=== PATIENT | female | born 1955 | race Caucasian/White ===

== ENCOUNTER 2019-06-06 08:18 | Outpatient (CLI) | payer MEDICARE, SELFPAY ==
--- NOTE | ~2019-06-06 | DEXA_ITS ---
BMD(1) Young-Adult(2) Age-Matched(3) Region (g/cm2) T-score Z-score WHO Classification L1 1.039 -0.8 1.3 Normal L2 0.945 -2.2 0.0 Osteopenia L3 0.917 -2.4 -0.2 Osteopenia L4 0.994 -1.7 0.4 Osteopenia L1-L4 0.971 -1.8 0.4 Osteopenia Trend: L1-L4 Change vs Change vs Measured Age BMD(1) Baseline Previous Date (years) (g/cm2) (%) (%) 06/06/2019 [age] 0.971 baseline - 1 - Statistically 68% of repeat scans fall within 1SD (+- 0.010 g/cm2 for AP Spine L1-L4) 2 - [place] (Combined NHANES (ages 20-30) / [employer] ([employer]) (ages 20-40)) AP Spine Reference Population (v112) 3 - Matched for Age, Weight (females 25-100 kg), Ethnic 11 - World Health Organization - Definition of Osteoporosis and Osteopenia for Women: Normal = T-score at or above -1.0 SD; Osteopenia = T-score between -1.0 and -2.5 SD; Osteoporosis = T-score at or below -2.5 SD; (WHO definitions only apply when a young healthy Women reference database is used to determine T-scores.) Printed: 06/06/2019 8:48:20 AM (13.60)76:3.00:50.00:12.0 0.00:9.78 0.60x1.05 17.8:%Fat=26.2% 0.00:0.00 0.00:0.00 Filename: [id number] Scan Mode: Standard;OneScan 37.0 Spling [id number] BMD(1) Young-Adult(2,7) Age-Matched(3) Region (g/cm2) T-score Z-score WHO Classification Neck Left 0.690 -2.5 -0.7 Osteoporosis Right 0.701 -2.4 -0.6 Osteopenia Mean 0.696 -2.5 -0.6 Osteoporosis Difference 0.011 0.1 0.1 - Total Left 0.760 -2.0 -0.4 Osteopenia Right 0.777 -1.8 -0.2 Osteopenia Mean 0.769 -1.9 -0.3 Osteopenia Difference 0.017 0.1 0.1 - Hip [place] Length Comparison (mm) (Right = 98.6 mm) (Mean = 100.5 mm) (Left = 96.7 mm) Trend: Total Mean Change vs Change vs Measured Age BMD(1) Baseline Previous Date (years) (g/cm2) (%) (%) 06/06/2019 63.5 0.769 baseline - 1 - Statistically 68% of repeat scans fall within 1SD (+- 0.010 g/cm2 for DualFemur Total) 2 - [place] (Combined NHANES (ages 20-30) / [employer] ([employer]) (ages 20-40)) Femur Reference Population (v112) 3 - Matched for Age, Weight (females 25-100 kg), Ethnic 7 - DualFemur Total T-score difference is 0.1. Asymmetry is None. 11 - World Health Organization - Definition of Osteoporosis and Osteopenia for Women: Normal = T-score at or above -1.0 SD; Osteopenia = T-score between -1.0 and -2.5 SD; Osteoporosis = T-score at or below -2.5 SD; (WHO definitions only apply when a young healthy Women reference database is used to determine T-scores.) Printed: 06/06/2019 8:48:20 AM (13.60); Filename: [id number]; Right Femur; 14.8:%Fat=15.5%; Neck Angle (deg)= 67; Scan Mode: Thin 9.0 uGy; Left Femur; 13.6:%Fat=17.7%; Neck Angle (deg)= 66; Scan Mode: Thin 9.0 uGy Victor [id number] Dear Cassius Greer, Your patient Lela Rivers completed a BMD test on 06/06/2019 using the Victor DXA System (analysis version: 13.60) manufactured by [employer]. The following summarizes the results of our evaluation. PATIENT BIOGRAPHICAL: Name: Lela Rivers Date: 1955 Height: 60.0 in. Gender: Female
== END 2019-06-06 08:19 | disposition home or self-care (01) ==
LOC: CHSIMG 08:20
PROVIDERS: PCP Family Medicine; Visit Provider Family Medicine
DX: M81.0 Age-related osteoporosis without current pathological fracture (principal)
CPT/HCPCS: 77080

== ENCOUNTER 2019-06-16 08:38 | Emergency (ER) | payer MEDICARE, SELFPAY ==
--- NOTE | ~2019-06-16 | XR_ITS ---
EXAMINATION: XR shoulder RT min 2V DATE: 06/16/2019 09:35 INDICATION: Right shoulder pain. Fall. TECHNIQUE: 4 views of right shoulder were obtained. COMPARISON: None. FINDINGS: Bone alignment is normal. No fracture. There is mild osteoarthritis of glenohumeral joint a nd acromioclavicular joint. IMPRESSION: 1. Mild polyarticular osteoarthritis. Reviewed, dictated and finalized at location A. GER MALL
[2019-06-16 09:08] VITALS: BP 157/78; PULSE 66; RESP 20; TEMP 36.9; O2SAT 97
--- NOTE | 2019-06-16 09:10 | ED.UPPEXIN ---
HPI - Extremity Injury (Upper) General Chief Complaint: Extremity Injury, Upper Stated Complaint: fell hurt shoulder Source: patient and RN notes reviewed Mode of arrival: ambulatory Limitations: no limitations History of Present Illness HPI narrative: Patient was stepping up on a step and caught her heel. She tried to extend her arms to prevent her fall but then fell onto her right shoulder. She says she is having pain with range of motion. complaint: injury to: right and shoulder Onset (ago): hour(s) (2) Other injuries: none Handedness: right Place: home Severity scale (1-10): 7 Relieving factors: none Exacerbating factors: movement of extremity Context: fall Associated symptoms: heard/felt popping sensation Related Data Home Medications Medication Instructions Recorded Confirmed clopidogrel 75 mg PO DAILY 06/16/19 06/16/19 hydrocodone-acetaminophen 1 tablet PO PRN PRN 06/16/19 06/16/19 tramadol 50 mg PO BID 06/16/19 06/16/19 Allergies Allergy/AdvReac Type Severity Reaction Status Date / Time bupropion [From Wellbutrin] Allergy Unknown Verified 06/16/19 09:18 hydromorphone [From Dilaudid] Allergy Unknown Verified 06/16/19 09:18 Sulfa (Sulfonamide Allergy Unknown Verified 06/16/19 09:18 Antibiotics) Review of Systems Review of Systems: All systems reviewed & are unremarkable except as noted in HPI and below PMFSH Past Medical History Medical History (Updated 06/16/19 @ 09:49 by Sriram King MD) Endometriosis Fibromyalgia Osteoporosis Ovarian cyst TIA (transient ischemic attack) Surgical History Surgical History (Updated 06/16/19 @ 09:16 by Sriram King MD) H/O arthroscopic knee surgery H/O section H/O exploratory laparotomy H/O hysterectomy for benign disease History of appendectomy Social History Social History (Updated 06/16/19 @ 09:19 by Arely Rainey RN) Smoking status: Current every day smoker Exam Const: General: healthy appearing, no acute distress and alert Nutritional Appearance: well nourished and thin Orientation/consciousness: patient oriented x3 HENMT: Head: normal to inspection Ears: external ears normal General nose exam: Normal external nose present Face and sinus: normal facial exam Eyes: Conjunctivae: conjunctivae normal Pupils: Equal, round and reactive pupils present EOM: EOMs intact bilaterally Neck: Neck: normal visual inspection Resp: Effort & Inspection: normal respiratory effort Auscultation: clear to auscultation bilaterally Cardio: Rate: regular rate Rhythm: regular rhythm GI: GI Palp: Yes Soft to palpation and No Tenderness to palpation present (GI) Auscultation: normal bowel sounds Back/Spine/Pelvis: Cervical Spine: cervical ROM normal Thoracic/Lumbar Spine: thoraco-lumbar ROM normal Skin: General skin exam: normal color Neuro: General: patient oriented x3 Speech: normal speech Gait exam (Neuro): Normal gait present Extrem: Right upper extremity: shoulder/upper arm tenderness of the A-C joint and of the proximal humerus; not of the mid-shaft humerus and normal ROM Psych: Appearance: grossly normal and well kempt Mental Status: mental status grossly normal Affect: normal affect Attitude: cooperative Thought content: Yes Normal thought content present Course Vital Signs Vital signs: Vital Signs Temperature 36.9 C 06/16/19 09:08 Pulse Rate 66 06/16/19 09:08 Respiratory Rate 20 06/16/19 09:08 Blood Pressure 157/78 H 06/16/19 09:08 Pulse Oximetry 97 06/16/19 09:08 Temperature 36.9 C 06/16/19 09:08 Pulse Rate 85 06/16/19 10:01 Respiratory Rate 20 06/16/19 10:01 Blood Pressure 130/75 06/16/19 10:01 Pulse Oximetry 99 06/16/19 10:01 Discharge Plan Discharge Clinical Impression: Strain of right shoulder Qualifiers: Encounter type: initial encounter Qualified Code(s): S46.911A - Strain of unspecified muscle, fascia and tendon at shoulder and upper arm level, rig
[2019-06-16 10:01] VITALS: BP 130/75; PULSE 85; RESP 20; O2SAT 99
== END 2019-06-16 10:02 | disposition home or self-care (01) ==
PROVIDERS: Emergency Provider Emergency Medicine; PCP Family Medicine
DX: S46.911A Strain of unspecified muscle, fascia and tendon at shoulder and upper arm level, right arm, initial encounter (principal); W19.XXXA Unspecified fall, initial encounter
CPT/HCPCS: 73030; 99282; 99283; A4565

== ENCOUNTER 2020-02-01 14:09 | Outpatient (CLI) | payer MEDICARE, SELFPAY ==
[2020-02-01 23:56] LABS: SARS-CoV-2 RNA PCR Negative
== END 2020-02-01 14:10 | disposition home or self-care (01) ==
LOC: CHSLAB 14:14
PROVIDERS: PCP Family Medicine; Visit Provider Nurse Practitioner
DX: Z20.828 Contact with and (suspected) exposure to other viral communicable diseases (principal)
CPT/HCPCS: 87635; C9803; U0003

== ENCOUNTER 2020-04-25 08:49 | Outpatient (CLI) | payer MEDICARE, SELFPAY ==
--- NOTE | ~2020-04-25 | MR_ITS ---
EXAMINATION: MR shoulder RT wo con DATE: 04/25/2020 11:36 INDICATION: Right shoulder pain 6 months post fall TECHNIQUE: Magnetic resonance imaging (MRI) of the right shoulder was performed without intravenous c ontrast. Sequences included axial PD-weighted FS FSE, coronal oblique PD-weighted FS FSE, coronal obl ique T2-weighted FS FSE, sagittal PD-weighted FS FSE, and sagittal T1-weighted SE. COMPARISON: None. FINDINGS: Coracoacromial arch: The acromion undersurface is curved in morphology (type II). The coracoacromial ligament is normal. A cromioclavicular joint is normal. Rotator cuff: Mild supraspinatus tendinopathy with very small articular sided tear approximately 5 mm in the superi or facet footplate which measures only a couple millimeter in each dimension, involving less than one third of the tendon thickness. The infraspinatus and teres minor tendons are normal. Moderate subsca pularis tendinopathy without discrete tear. Normal rotator cuff muscle bulk and signal. Biceps tendon, glenoid labrum and glenohumeral cartilage: Long head of the biceps tendon is normal. Glenoid labrum is normal. Glenohumeral cartilage is normal. Fluid: Physiologic amount of fluid in the glenohumeral joint and biceps tendon sheath. No loose osteochondra l bodies. No abnormal fluid signal in the subacromial/subdeltoid bursa to suggest bursitis. Bones: Marrow edema and mild cystic change along what appears be a small and shallow Hill-Sachs fracture tro ugh at the posterolateral aspect of the humeral head. Otherwise normal marrow signal. No pathologic m arrow replacing process. IMPRESSION: 1. Mild edema cystic change at a small shallow likely chronic Hill-Sachs fracture trough at the poste rior superior aspect of the humeral head suggesting prior anterior glenohumeral dislocation. Correlat e with clinical history. No corresponding Bankart lesion. 2. Moderate subscapularis and mild supraspinatus tendinopathy with tiny mild articular sided tear at the distal supraspinatus tendon. Reviewed, dictated and finalized at location A. LER MANAGER IMPRESSION: 1. Mild edema cystic change at a small shallow likely chronic Hill-Sachs fractu re trough at the posterior superior aspect of the humeral head suggesting prior anterior glenohumeral dislocation. Correlate with clinical history. No corresp onding Bankart lesion. 2. Moderate subscapularis and mild supraspinatus tendinopathy with tiny mild ar ticular sided tear at the distal supraspinatus tendon.
== END 2020-04-25 08:50 | disposition home or self-care (01) ==
PROVIDERS: PCP Family Medicine; Visit Provider Nurse Practitioner
DX: M25.511 Pain in right shoulder (principal)
CPT/HCPCS: 73221

== ENCOUNTER 2020-05-14 08:03 | Outpatient (CLI) | payer MEDICARE, SELFPAY ==
--- NOTE | ~2020-05-14 | XR_ITS ---
XR shoulder RT min 2V DATE: 05/14/2020 08:29 INDICATION: Right shoulder and neck pain. Numbness of right fingers. TECHNIQUE: 5 views COMPARISON: None FINDINGS: No fracture or dislocation, periosteal reaction or bone destruction. Normal alignment at th e acromioclavicular and glenohumeral joints. IMPRESSION: No significant abnormality of the right shoulder Reviewed, dictated and finalized at location A. NTATION AND MOBILITY SPECIALIST
== END 2020-05-14 08:04 | disposition home or self-care (01) ==
LOC: CHSIMG 08:05
PROVIDERS: PCP Family Medicine; Visit Provider Orthopaedic Surgery
DX: M25.511 Pain in right shoulder (principal)
CPT/HCPCS: 73030

== ENCOUNTER 2020-07-09 08:49 | Outpatient (RCR) | payer MEDICARE, SELFPAY ==
--- NOTE | 2020-07-09 11:44 | PTOPEVAL ---
Thank you for referring Lela Rivers to [facility].? The patient is scheduled to be seen for therapy? ____x/week for ___ weeks. Please review, sign, date and return this plan of care CHRISTIANO. I agree with and certify that the following plan of care is medically necessary. Referring Physician Date Admitting Provider: Attending Provider: Bala Daniel MD Referring Provider: *PT Outpatient Evaluation Start: 07/09/20 08:40 Freq: Status: Active Protocol: Document 07/09/20 09:00 ACR (Rec: 07/09/20 10:55 ACR [id number]) Therapy Assessment Status Assessment Status Assessment Status Evaluation Outpatient Past Medical History Neurological History Hx Transient Ischemic Attacks (TIA) Yes Gastrointestinal History Hx Appendectomy Yes Musculoskeletal History Hx Back Pain Yes Hx Fibromyalgia Yes Hx Osteoporosis Yes Reproductive History Hx Section Yes Hx Endometriosis Yes Hx Hysterectomy Yes Evaluation Information Problem Diagnosis R shoulder pain Subjective Information Patient states she tripped and Query Text:As Reported By Patient/ fell a year ago and fractured Family it, but did not get an X-ray or MRI at the time, but did a few months ago. The MRI states she has a Hill Sachs lesion with an AP dislocation. Patient states that her shoulder is keeping her awake, she cannot prop herself up on the R arm, she cannot lift anything with her R arm or open jars. 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 She states she occasionally has pain down her arm, but it is usually in the trapezius muscle. Patient states she occasionally takes hydrocondone if the pain is that bad, but only on an as needed basis. Prior Level of Function Activity Level (Last 3 Months) Occupation disabled Hand Dominance Left Activity of Daily Living Ability Independent Indoor/Home Mobility Independent Community Mobility Independent
--- NOTE | 2020-07-09 11:45 | PTOPEVAL ---
Thank you for referring Lela Rivers to [facility].? The patient is scheduled to be seen for therapy? ____x/week for ___ weeks. Please review, sign, date and return this plan of care CHRISTIANO. I agree with and certify that the following plan of care is medically necessary. Referring Physician Date Admitting Provider: Attending Provider: Bala Daniel MD Referring Provider: *PT Outpatient Evaluation Start: 07/09/20 08:40 Freq: Status: Active Protocol: Document 07/09/20 09:00 ACR (Rec: 07/09/20 10:55 ACR [id number]) Therapy Assessment Status Assessment Status Assessment Status Evaluation Outpatient Past Medical History Neurological History Hx Transient Ischemic Attacks (TIA) Yes Gastrointestinal History Hx Appendectomy Yes Musculoskeletal History Hx Back Pain Yes Hx Fibromyalgia Yes Hx Osteoporosis Yes Reproductive History Hx Section Yes Hx Endometriosis Yes Hx Hysterectomy Yes Evaluation Information Problem Diagnosis R shoulder pain Subjective Information Patient states she tripped and Query Text:As Reported By Patient/ fell a year ago and fractured Family it, but did not get an X-ray or MRI at the time, but did a few months ago. The MRI states she has a Hill Sachs lesion with an AP dislocation. Patient states that her shoulder is keeping her awake, she cannot prop herself up on the R arm, she cannot lift anything with her R arm or open jars. 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 She states she occasionally has pain down her arm, but it is usually in the trapezius muscle. Patient states she occasionally takes hydrocondone if the pain is that bad, but only on an as needed basis. Prior Level of Function Activity Level (Last 3 Months) Occupation disabled Hand Dominance Left Activity of Daily Living Ability Independent Indoor/Home Mobility Independent Community Mobility Independent
--- NOTE | 2020-09-20 16:41 | PCPTNOTE ---
Patient is a 64 year old female that participated in 3 visits for R shoulder pain. The patient had a recent stroke and is being seen for the new diagnosis. This chart is to be discharged at this time. Please refer to recent treatment note for discharge status. Thank you, Mariluz Ybarra DPT
== END 2020-07-17 09:15 | disposition home or self-care (01) ==
LOC: CHSPT 08:49
PROVIDERS: Visit Provider Orthopaedic Surgery
DX: M25.511 Pain in right shoulder (principal); M77.8 Other enthesopathies, not elsewhere classified
CPT/HCPCS: 97014; 97110; 97161; G0283

== ENCOUNTER 2020-08-06 06:56 | Emergency (ER) | payer MEDICARE, SELFPAY ==
--- NOTE | ~2020-08-06 | XR_ITS ---
EXAMINATION: XR chest 1V portable DATE: 08/06/2020 07:46 INDICATION: Cerebrovascular accident. TECHNIQUE: A single frontal view of the chest was obtained. COMPARISON: None. FINDINGS: The chest demonstrates clear lungs without pneumonia, pleural effusion, or pneumothorax. Th e heart size is normal. IMPRESSION: 1. No acute cardiopulmonary disease. Reviewed, dictated and finalized at location A.
--- NOTE | ~2020-08-06 | CT_ITS ---
EXAMINATION: CT brain wo con DATE: 08/06/2020 07:08 INDICATION: Left hemiparesis. TECHNIQUE: Computed tomography (CT) of the head was performed without intravenous contrast. The mA wa s adjusted according to patient size. Iterative reconstruction technique was employed. The dose-lengt h product was 605.33 mGy-cm. COMPARISON: None FINDINGS: There are old infarcts in right cerebellum. There are scattered areas of low attenuation in the cerebral white matter and yumiko. There are old infarcts in the bilateral basal ganglia and left t halamus. There is an infarct in the right thalamus and right internal capsule. There is no intracrani al hemorrhage, acute infarction, or abnormal intracranial mass lesion. There is ex vacuo dilatation o f frontal horn of right lateral ventricle. The paranasal sinuses are clear. The mastoid air cells are normal. The orbits are normal. IMPRESSION: 1. Infarct in the right thalamus and right internal capsule, which may be acute. 2. Old infarcts in the bilateral basal ganglia, left thalamus, and right cerebellum. 3. Moderate nonspecific cerebral white matter disease, which likely represents chronic small vessel i schemic disease. 4. I discussed this case with Dr. Luciano. Reviewed, dictated and finalized at location A. IMPRESSION: 1. Infarct in the right thalamus and right internal capsule, which may be acute . 2. Old infarcts in the bilateral basal ganglia, left thalamus, and right cerebe llum. 3. Moderate nonspecific cerebral white matter disease, which likely represents chronic small vessel ischemic disease. 4. I discussed this case with Dr. Luciano.
[2020-08-06 07:07] VITALS: BP 150/94; PULSE 69; RESP 69; TEMP 36.6; O2SAT 97
[2020-08-06 07:08] LABS: Glucose Point of Care 96 (65-105)
--- NOTE | 2020-08-06 07:08 | ECG_ITS ---
Measurements Intervals [place] Rate: 66 P: 72 MD: 195 QRS: 118 QRSD: 133 T: 87 QT: 408 QTc: 429 Interpretive Statements SINUS RHYTHM RIGHT BUNDLE BRANCH BLOCK LEFT POSTERIOR FASCICULAR BLOCK MINIMAL Q WAVES- INF/LAT LEADS ABNORMAL ECG Electronically Signed On 08-06-2020 8:16:59 CDT by Sebastien Antunez D.O.
[2020-08-06 07:10] VITALS: BP 150/94; PULSE 69; RESP 16; O2SAT 97
[2020-08-06 07:29] LABS: Basophils Absolute Auto 0.05 K/mm3 (0.00-0.10); Basophils Percent Auto 0.7 % (0.0-1.0); Eosinophils Absolute Auto 0.24 K/mm3 (0.02-0.50); Eosinophils Percent Auto 3.5 % (1.0-6.0); Hematocrit 42.6 % (35.0-42.0); Immature Granulocyte Absolute 0.02 K/mm3 (0.00-0.00); Immature Granulocyte Percent A 0.3 % (0.0-0.0); Lymphocytes Absolute Auto 1.89 K/mm3 (1.10-4.50); Lymphocytes Percent Auto 27.2 % (18.0-42.0); Mean Corpuscular HGB Conc 32.9 g/dL (32.0-36.0); Mean Corpuscular Hemoglobin 28.7 pg (27.0-31.0); Mean Corpuscular Volume 87.3 fL (78.0-102.0); Mean Platelet Volume 9.2 fl (9.2-11.8); Monocytes Absolute Auto 0.47 K/mm3 (0.10-0.90); Monocytes Percent Auto 6.8 % (2.0-11.0); Neutrophils Absolute Auto 4.3 K/mm3 (1.7-7.2); Neutrophils Percent Auto 61.5 % (50.0-70.0); Platelet Count Result 240 K/mm3 (150-420); Red Blood Count 4.88 M/mm3 (4.20-5.40); White Blood Count 6.9 K/mm3 (4.8-10.8)
[2020-08-06 07:38] LABS: Appearance Urine Clear (Clear); Bilirubin Urine Negative (Negative); Color Urine Yellow (Yellow); Glucose Urine UA Negative (Negative); Ketones Urine Negative (Negative); Leukocyte Esterase Ur Negative (Negative); Nitrate Urine Negative (Negative); Protein Urine Negative (Negative); Specific Grav Ur <= 1.005 (1.010-1.020); Urobilinogen Urine 0.2 mg/dL (0.2-1.0)
[2020-08-06 07:50] LABS: Alanine Aminotransferase 26 U/L (14-59); Albumin Level 3.9 g/dL (3.4-5.0); Alkaline Phosphatase 83 U/L (46-116); Anion Gap 10 mmol/L (8-16); Aspartate Amino Transferase < 10 U/L (15-37); Bilirubin,Total 0.2 mg/dL (0.00-1.00); Blood Urea Nitrogen 8 mg/dL (7-18); Calcium 9.2 mg/dL (8.5-10.1); Carbon Dioxide 25 mmol/L (21-32); Chloride 104 mmol/L (98-108); Estimated Glomerular Filt Rate 55; Glucose 100 mg/dL (70-99); NT Pro B Type Natriuretic Pept 59 pg/mL (0-125); Osmolality Calculated 286 mOsm/kg (285-295); Potassium 3.9 mmol/L (3.5-5.1); Sodium 139 mmol/L (136-145); Total Protein 7.2 g/dL (6.4-8.2)
[2020-08-06 07:51] LABS: Add Urine Microscopic? YES; Blood Urine Trace-Intact (Negative); RBC Urine None seen /hpf (0-2); Troponin I < 4.0 ng/L (0.00-60.4); WBC Urine None seen /hpf (0-3)
[2020-08-06 07:51] LABS: Magnesium 2.1 mg/dL (1.8-2.4)
[2020-08-06 07:52] LABS: Bacteria Urine None seen /hpf
--- NOTE | 2020-08-06 08:07 | ED.NEUROSD ---
HPI - Neuro Symptoms/Deficit General Chief Complaint: Suspected CVA Stated Complaint: ambulance Source: patient Mode of arrival: EMS Limitations: no limitations (anxiety is an issue) History of Present Illness HPI Narrative: This young woman comes in after going to bed last night between 8 and 10:00 p.m. She woke up at about 3:00 a.m. not feeling well. She felt that she was weak on the left side. She took a full strength aspirin at that time and evidently went back to bed. She took another aspirin full strength at 4am, and then again at 6am. She called 911 and presented here at roughly 7:10am. She tells me she had a stroke in the past and was evaluated, she thinks at [facility] in [place]. She was told she had a septal defect noted at that time, and Dr. Subramanian wanted to do a KATELIN to better evaluate the septal defect, but she never followed up. She has smoked since age 34 when she went through a divorce. Now down to about 5 cigs a day. She was supposed to be on atorvastatin, but stopped it as it caused some muscle cramps. Related Data Home Medications Medication Instructions Recorded Confirmed clopidogrel 75 mg PO DAILY 08/06/20 08/06/20 lisinopril 10 mg PO DAILY 08/06/20 08/06/20 tramadol 50 mg PO BID PRN 08/06/20 08/06/20 Allergies Allergy/AdvReac Type Severity Reaction Status Date / Time bupropion [From Wellbutrin] Allergy Hives Verified 08/06/20 07:52 hydromorphone [From Dilaudid] Allergy Anaphylaxis Verified 08/06/20 07:52 Review of Systems Constitutional: Constitutional: Reports fatigue and Reports weakness Comments: headache Eyes: Eyes: Reports no additional eye complaints ENT: Reports as per HPI Cardiovascular: Cardiovascular: Reports no additional cardiovascular complaints Respiratory: Respiratory: Reports no additional respiratory complaints Gastrointestinal: Gastrointestinal: Reports no additional gastrointestinal complaints Genitourinary: Genitourinary: Reports no additional female genitourinary complaints Musculoskeletal: Musculoskeletal: Reports no additional musculoskeletal complaints Integumentary/Breasts: Skin/Breast: Reports system reviewed and no additional complaints, except as docu Neurologic: Reports system reviewed and no additional complaints, except as documented Psychiatric: Psychiatric: Reports anxiety Endocrine: Endocrine: Reports no additional endocrine complaints Hematologic/Lymphatic: Hematologic/Lymphatic: Reports no additional hematologic/lymphatic complaints Allergic/Immunologic: Allergic/Immunologic: Reports no additional allergic/immunologic complaints PMFSH Past Medical History Medical History (Updated 08/06/20 @ 09:14 by Sriram Luciano MD) ACL injury tear CVA (cerebral vascular accident) Fibromyalgia Hyperlipidemia Hypertension Septal defect, heart Surgical History Surgical History (Updated 08/06/20 @ 08:56 by Sriram Luciano MD) H/O exploratory laparotomy H/O knee surgery H/O: hysterectomy History of appendectomy Family History Family History (Updated 08/06/20 @ 08:56 by Sriram Luciano MD) Mother Family history non-contributory Social History Social History (Updated 08/06/20 @ 08:57 by Sriram Luciano MD) Social History: smoked since age 34. started after a divorce. previously smoked 1ppd, now down to about 5 cigs a day. Smoking status: Current every day smoker Alcohol intake: never Exam Const: General: cooperative, alert, awake, Physically active and anxious Nutritional Appearance: average body habitus and well nourished Orientation/consciousness: oriented to person, oriented to place and oriented to time Limitations: no limitations HENMT: Head: normal to inspection Ears: hearing grossly normal bilaterally General nose exam: Normal external nose present and Normal nares present Face and sinus: normal facial exam Mouth: Yes Normal oral and palatal mucosa present and Yes oropharynx normal Throat: posterio
[2020-08-06 08:23] LABS: SARS-CoV-2 Ag Negative (Negative)
[2020-08-06 08:23] LABS: Influenza Control Valid (Valid)
[2020-08-06 09:38] VITALS: BP 175/92; PULSE 68; RESP 16; TEMP 36.6; O2SAT 95
--- NOTE | 2020-08-06 09:45 | PC.NURSE ---
[id number] [facility] access contacted. [phone] [facility] call back. [phone] dr[address] patton accepting physician. [phone] telephone report provided to yariel mcgee. 1456 [facility] paged for transfer. [phone] patient left [facility].
== END 2020-08-06 09:38 | disposition short-term general hospital (02) ==
PROVIDERS: Emergency Provider Emergency Medicine; PCP Family Medicine
DX: I63.9 Cerebral infarction, unspecified (principal); Z20.822 Contact with and (suspected) exposure to COVID-19; E78.5 Hyperlipidemia, unspecified; I10 Essential (primary) hypertension; F17.200 Nicotine dependence, unspecified, uncomplicated
CPT/HCPCS: 36415; 70450; 71045; 80053; 81001; 82948; 83735; 83880; 84484; 85025; 87426; 87804; 93005; 99285; C9803

== ENCOUNTER 2020-08-24 08:02 | Outpatient (RCR) | payer MEDICARE, MEDICAID, SELFPAY ==
--- NOTE | 2020-08-24 09:28 | OTOPEVAL ---
Thank you for referring Lela Rivers to [facility] [place]Note 2[place]? The patient is scheduled to be seen for therapy? ____x/week for ___ weeks. Please review, sign, date and return this plan of care CHRISTIANO. I agree with and certify that the following plan of care is medically necessary. Referring Physician Date Admitting Provider: Attending Provider: Cassius Greer M.D. Referring Provider: *OT Outpatient Evaluation Start: 08/24/20 08:03 Freq: Status: Active Protocol: Document 08/24/20 08:03 [facility] [place] (Rec: 08/24/20 09:27 [facility] [place] [id number]) Therapy Assessment Status Assessment Status Assessment Status Evaluation Outpatient Past Medical History Neurological History Hx Cerebrovascular Accident (CVA) Yes Hx Transient Ischemic Attacks (TIA) Yes Gastrointestinal History Hx Appendectomy Yes Musculoskeletal History Hx Fibromyalgia Yes Reproductive History Hx Section Yes Hx Hysterectomy Yes Evaluation Information Problem Diagnosis L sided weakness Onset 08/06/20 Cause CVA Subjective Information Patient reports that she had a Query Text:As Reported By Patient/ CVA on 08/06/20 and was Family transferred to [facility] in [place], [place] and then transferred to [facility] in [place] for swing bed. Patient returned home ~ 1 week . Patient reports that she is unable to cook meals for herself and is just now starting to do some light meal prep. Patient reports that she is unable to care for her kittens, tie her shoes, take a shower, pull her hair into a ponytail, etc. Prior Level of Function Activity Level (Last 3 Months) Hand Dominance Left Activity of Daily Living Ability Independent Indoor/Home Mobility Independent Community Mobility Independent Stairs Ability Independent Functional Cognition (Planning, Shopping Independent , Taking Medications) Cooking Yes Cleaning Yes Laundry Yes Shopping Yes Driving Yes Home Setting Home Type Apartment Environmental Barriers Stairs, None Living Situation Alone Support Available Local Family Support Mobility Assistive Devices (Used Last 3 Walker,
--- NOTE | 2020-08-24 09:48 | OTOPEVAL ---
Thank you for referring Lela Rivers to [facility].? The patient is scheduled to be seen for therapy? ____x/week for ___ weeks. Please review, sign, date and return this plan of care CHRISTIANO. I agree with and certify that the following plan of care is medically necessary. Referring Physician Date Admitting Provider: Attending Provider: Cassius Greer M.D. Referring Provider: *OT Outpatient Evaluation Start: 08/24/20 08:03 Freq: Status: Active Protocol: Document 08/24/20 08:03 [facility] [place] [place] (Rec: 08/24/20 09:27 [facility] [place] [place] [id number]) Therapy Assessment Status Assessment Status Assessment Status Evaluation Outpatient Past Medical History Neurological History Hx Cerebrovascular Accident (CVA) Yes Hx Transient Ischemic Attacks (TIA) Yes Gastrointestinal History Hx Appendectomy Yes Musculoskeletal History Hx Fibromyalgia Yes Reproductive History Hx Section Yes Hx Hysterectomy Yes Evaluation Information Problem Diagnosis L sided weakness Onset 08/06/20 Cause CVA Subjective Information Patient reports that she had a Query Text:As Reported By Patient/ CVA on 08/06/20 and was Family transferred to [facility] in [place], [place] and then transferred to [place] in [place] for swing bed. Patient returned home ~ 1 week . Patient reports that she is unable to cook meals for herself and is just now starting to do some light meal prep. Patient reports that she is unable to care for her kittens, tie her shoes, take a shower, pull her hair into a ponytail, etc. Prior Level of Function Activity Level (Last 3 Months) Hand Dominance Left Activity of Daily Living Ability Independent Indoor/Home Mobility Independent Community Mobility Independent Stairs Ability Independent Functional Cognition (Planning, Shopping Independent , Taking Medications) Cooking Yes Cleaning Yes Laundry Yes Shopping Yes Driving Yes Home Setting Home Type Apartment Environmental Barriers Stairs, None Living Situation Alone Support Available Local Family Support Mobility Assistive Devices (Used Last 3 Walker,
--- NOTE | 2020-08-27 12:04 | PTOPEVAL ---
Thank you for referring Lela Rivers to [facility].? The patient is scheduled to be seen for therapy? ____x/week for ___ weeks. Please review, sign, date and return this plan of care CHRISTIANO. I agree with and certify that the following plan of care is medically necessary. Referring Physician Date Admitting Provider: Attending Provider: Cassius Greer M.D. Referring Provider: *PT Outpatient Evaluation Start: 08/27/20 06:59 Freq: Status: Active Protocol: Document 08/27/20 08:55 [facility] (Rec: 08/27/20 09:49 [facility] [id number]) Therapy Assessment Status Assessment Status Assessment Status Evaluation Outpatient Past Medical History Neurological History Hx Cerebrovascular Accident (CVA) Yes Hx Transient Ischemic Attacks (TIA) Yes Gastrointestinal History Hx Appendectomy Yes Musculoskeletal History Hx Fibromyalgia Yes Reproductive History Hx Section Yes Hx Hysterectomy Yes Evaluation Information Problem Diagnosis L sided weakness Onset 08/06/20 Subjective Information Patient states that she had a Query Text:As Reported By Patient/ CVA on 08/06/20 that effected Family her L side. She states that she her knee snaps back and it is bothering her quite a bit. She states that she has some weakness on the L, but is not walking as confidently. Patient that she doesn't walk for a long period of time because she feels her knee is going to buckle. She also has some difficulty with stairs, but not as bad. Prior Level of Function Activity Level (Last 3 Months) Occupation disabled Hand Dominance Left Activity of Daily Living Ability Independent Indoor/Home Mobility Independent Community Mobility Independent Stairs Ability Independent Functional Cognition (Planning, Shopping Independent , Taking Medications) Cooking Yes Cleaning Yes Laundry Yes Shopping Yes Driving Yes Pain Assessment Timing of Pain Assessment Timing of Pain Assessment Assessment Self Report Self Report Pain Level 0 Pain Score Pain Score 0: Self Report Lower Extremity Muscle Strength Testing Hip Strength Right Hip Flexion Strength 5 Normal Hip Abduction Strength 5 Normal Lef
--- NOTE | 2020-09-11 11:54 | PCOTNOTE ---
On 09/11/20, the student, [ Skylar Rincno], provided care and completed [facility] documentation on this patient. I have reviewed the student's documentation and agree with the findings.
--- NOTE | 2020-09-19 10:24 | PCOTNOTE ---
On 09/19/20, the student, [Skylar Rincon ], provided care and completed [facility] documentation on this patient. I have reviewed the student's documentation and agree with the findings.
--- NOTE | 2020-09-24 13:13 | PCOTNOTE ---
On 09/24/20, the student, [Skylar Rincon ], provided care and completed [facility] documentation on this patient. I have reviewed the student's documentation and agree with the findings.
--- NOTE | 2020-09-26 11:09 | OTOPEVAL ---
Thank you for referring Lela Rivers to [facility].? The patient is scheduled to be seen for therapy? ____x/week for ___ weeks. Please review, sign, date and return this plan of care CHRISTIANO. I agree with and certify that the following plan of care is medically necessary. Referring Physician Date Admitting Provider: Attending Provider: Cassius Greer M.D. Referring Provider: [facility] Outpatient Evaluation Start: 08/24/20 08:03 Freq: Status: Active Protocol: Document 09/26/20 09:59 [facility] [place] (Rec: 09/26/20 11:09 [facility] [place] [id number]) Therapy Assessment Status Assessment Status Assessment Status Re-evaluation Outpatient Past Medical History Neurological History Hx Cerebrovascular Accident (CVA) Yes Hx Transient Ischemic Attacks (TIA) Yes Gastrointestinal History Hx Appendectomy Yes Musculoskeletal History Hx Fibromyalgia Yes Reproductive History Hx Section Yes Hx Hysterectomy Yes Evaluation Information Problem Subjective Information Patient reports that she has Query Text:As Reported By Patient/ progressed in many areas and Family can now tie her shoes, cut her food, put her hair in a ponytail, feed herself, and do dishes with both hands. She states that it is still difficult to clean her apartment, continues to struggle with handwriting including her signature and stand for long periods of time . She also reports that it is difficult for her to chop food and peel potatoes, etc. Patient reports that she has had ~4 falls since she has been home. Pain Assessment Timing of Pain Assessment Timing of Pain Assessment Re-assessment Self Report Self Report Pain Level 0 Pain Score Pain Score 0: Self Report Upper Extremity Muscle Strength Testing Scapular/Shoulder Left Shoulder Flexion Strength 4 Good Shoulder Extension Strength 4 Good Shoulder Abduction Strength 4 Good Elbow/Forearm Left Elbow Flexion Strength 4+ Good + Elbow Extension Strength 4+ Good + Hand Power Switchboard Operator/Pinch Strength Assessment Hand Left Power Switchboard Operator Strength (lbs) 30 Lateral Pinch Strength (lbs) 5 General Exercise General Exercises Exercise Description Patient uses bilateral arms to Query Text:Record Sets, Reps, propel UBE x 10 min (5 min Resistance, and Position forward, 5 min backwards
--- NOTE | 2020-10-04 12:31 | PTOPEVAL ---
Thank you for referring Lela Rivers to [facility].? The patient is scheduled to be seen for therapy? ____x/week for ___ weeks. Please review, sign, date and return this plan of care CHRISTIANO. I agree with and certify that the following plan of care is medically necessary. Referring Physician Date Admitting Provider: Attending Provider: Cassius Greer M.D. Referring Provider: TG Outpatient Evaluation Start: 08/27/20 06:59 Freq: Status: Active Protocol: Document 10/04/20 11:00 [facility] (Rec: 10/04/20 12:08 [facility] [id number]) Outpatient Past Medical History Neurological History Hx Cerebrovascular Accident (CVA) Yes Hx Transient Ischemic Attacks (TIA) Yes Gastrointestinal History Hx Appendectomy Yes Musculoskeletal History Hx Fibromyalgia Yes Reproductive History Hx Section Yes Hx Hysterectomy Yes Evaluation Information Problem Diagnosis L sided weakness Onset 08/06/20 Cause CVA Subjective Information Patient reports that she Query Text:As Reported By Patient/ experienced 6 falls in the Family past 3 days, she reports no injuries were sustained from these falls. She is going to [employer] next week for a new knee brace and L ankle AFO. Pain Assessment Timing of Pain Assessment Timing of Pain Assessment Pre-Treatment Pain Scale Pain Scale Used Numeric (1 - 10) Self Report Pain Assessment Lower Back Reported Pain Level 5 Left Hip(s) Reported Pain Level 0 Dorsal Wrist(s) Reported Pain Level 5 Pain Score Pain Score 5,0,5: Self Report Additional Pain Score Comments patient does mention discomfort in bilateral wrists with quadruped Interventions Used Interventions Used By Clinicians Activity or ADL's,Education, Exercise Lower Extremity Muscle Strength Testing Hip Strength Right Hip Flexion Strength 5 Normal Hip Abduction Strength 5 Normal Left Hip Flexion Strength 4+ Good + Hip Abduction Strength 4+ Good + Knee Strength Right Knee Flexion Strength 5 Normal Knee Extension Strength 5 Normal Left Knee Flexion Strength 4+ Good + Knee Extension Strength 4+ Good + Ankle Strength Right Ankle Dorsiflexion Strength 5 Normal Ankle Plantarflexion Strength 5 Normal Left Ankle Dorsiflexion Strength 4+ Good + Ankle Plantarflexion Strength 5 Normal Balance Assessment Tinetti Balance Assessment Sitting Balance
== END 2020-11-07 13:30 | disposition home or self-care (01) ==
LOC: CHSOT 08:02
PROVIDERS: PCP Family Medicine; Visit Provider Family Medicine
DX: R53.1 Weakness (principal); I63.9 Cerebral infarction, unspecified
CPT/HCPCS: 97110; 97112; 97161; 97165; 97530; 97535

== ENCOUNTER 2021-03-01 10:00 | Outpatient (RCR) | payer MEDICARE, MEDICAID, SELFPAY ==
--- NOTE | 2021-02-12 09:57 | PTOPEVAL ---
Thank you for referring Lela Rivers to [facility].? The patient is scheduled to be seen for therapy? ____x/week for ___ weeks. Please review, sign, date and return this plan of care CHRISTIANO. I agree with and certify that the following plan of care is medically necessary. Referring Physician Date Admitting Provider: Attending Provider: Cassius Greer M.D. Referring Provider: *PT Outpatient Evaluation Start: 02/12/21 09:17 Freq: Status: Active Protocol: Document 02/12/21 09:15 [facility] (Rec: 02/12/21 09:56 [facility] [email or web address]) Therapy Assessment Status Assessment Status Assessment Status Evaluation Outpatient Past Medical History Neurological History Hx Cerebrovascular Accident (CVA) Yes Hx Transient Ischemic Attacks (TIA) Yes Gastrointestinal History Hx Appendectomy Yes Musculoskeletal History Hx Fibromyalgia Yes Reproductive History Hx Section Yes Evaluation Information Problem Diagnosis L shoulder pain, biceps tendonitis, numbness Onset 01/06/21 Additional Evaluation Detail quick dash = 68% functionally declined Subjective Information patient reports she fell about Query Text:As Reported By Patient/ 1 month ago. she reports she Family was doing stuff and home and dropped something. she reports she bent over to pick it up and became unsteady. she reports she falls frequently, alsways when she is carrying or doing things. she reports she injured her L shoulder/arm during her last fall. she reports the arm has increased pain, tightness, and numbness with yawning. she reports her had with cramp up and feel like a trigger finger in the middle finger. however, this does not happen every time. she reports she has increased pain in the L arm all the time in the mid arm. she reports no difficulty breathing, no chest pain, no L face pain. she reports she has difficulty sleeping. charanjit reports pain will randomly come on severe when she is just sitting on the couch. Prior
--- NOTE | 2021-03-01 12:33 | STOPEVAL ---
Thank you for referring Lela Rivers to [facility] [place].? The patient is scheduled to be seen for therapy? 1x/week for 10 sessions. Please review, sign, date and return this plan of care CHRISTIANO. I agree with and certify that the following plan of care is medically necessary. Referring Physician Date Admitting Provider: Attending Provider: Cassius Greer M.D. Referring Provider: [facility] Outpatient Evaluation Start: 03/01/21 11:39 Freq: Status: Active Protocol: Document 03/01/21 10:00 [facility] (Rec: 03/01/21 12:33 [facility] [id number]) Therapy Assessment Status Assessment Status Assessment Status Evaluation Outpatient Past Medical History Past Medical History Source of Past Medical History Patient Neurological History Hx Cerebrovascular Accident (CVA) Yes: Right brain CVA on August 06 Hx Transient Ischemic Attacks (TIA) Yes Gastrointestinal History Hx Appendectomy Yes Musculoskeletal History Hx Fibromyalgia Yes: currently taking medication orally Reproductive History Hx Section Yes Evaluation Information Problem Diagnosis Dysphagia, neurologic (R13.19) Onset few months ago Cause CVA Subjective Information Pt reported she has been Query Text:As Reported By Patient/ having trouble swallowing Family tough textured foods, specifically sticky foods such as peanut butter dating back to a few months ago. Pt experiences food getting stuck in her throat during every meal. She often has to clear her throat, rub her neck, or drink liquids to wash the food down. Pt reported she feels she has not experienced any reflux after eating. Previous Treatments Previous Treatments For This Problem Pt has not received speech therapy prior to this evaluation. Prior Level of Function Prior Swallow Level Prior Intake Method Oral Prior Diet Regular (Level 7 Diet) Prior Liquid Consistency Thin (Level 0 Diet) Pain Assessment Timing of Pain Assessment Timing of Pain Assessment Assessment Self Report Self Report Pain Level 0 Pain Score Pain Score 0: Self Report Bedside Swallow Evaluation General Reports Dysphagia Yes Onset of Dysphagia a few months ago Duration of Dysphagia every meal History of Related Medical Diagn
--- NOTE | 2021-03-01 12:54 | PCSTNOTE ---
On 03/01/21, the student, [Mamie Burton], provided care and [facility]. I have reviewed the student's documentation and agree with the findings.
--- NOTE | 2021-03-15 10:51 | PCSTNOTE ---
Ui Developer said patient called and cancelled all further outpatient therapy treatments due to increased pain she is experiencing. Patient will be discharged from ST services.
--- NOTE | 2021-03-21 09:03 | PCSTNOTE ---
Admitting Provider: Attending Provider: Cassius Greer M.D. Patient:Lela Rivers Date of :1955 SPEECH THERAPY DISCHARGE Patient has not returned for any further treatments since the initial evaluation on 03/01/2021, therefore she will be discharged at this time. Patient?s initial visit was on 03/01/2021 for an evaluation and she did not return for any further treatment. Patient reported that she was hurting and did not wish to return for any more outpatient therapy at this time. The goals have not been targeted due to no attendance after initial evaluation. Goals that were written include; tolerating regular/thin fluid diet with no overt signs or symptoms of aspiration, utilize trained compensatory techniques to improve airway protection during intake with independent use, perform james exercises to improve ROM for AP transit, and perform controlled exhale/max phonation exercises to improve respiratory support/control for deglutition and speech. Thank you for referring this patient to [facility]. Please review, sign, date and return this discharge summary CHRISTIANO. I have been updated about the patient's current status and I agree with discharge from the above service at this time. Referring Physician Date
--- NOTE | 2021-04-10 07:15 | PCPTNOTE ---
04/10/21 - patient has not been back to skilled PT in over a month. as of this date, all progress towards goals will be taken from her most recent evaluation/note. XIOMY
== END 2021-03-01 15:07 | disposition home or self-care (01) ==
LOC: CHSST 10:00
PROVIDERS: PCP Family Medicine; Visit Provider Family Medicine
DX: M25.512 Pain in left shoulder (principal); M75.22 Bicipital tendinitis, left shoulder; R20.0 Anesthesia of skin; R13.19 Other dysphagia
CPT/HCPCS: 92610; 97014; 97110; 97140; 97161; G0283

== ENCOUNTER 2021-04-23 09:53 | Outpatient (CLI) | payer MEDICARE, SELFPAY | END 2021-04-23 09:54 | disposition home or self-care (01) | LOC: CHSLAB 09:59 | PROVIDERS: PCP Family Medicine; Visit Provider Physician Assistant | DX: Z20.822 Contact with and (suspected) exposure to COVID-19 (principal) | CPT/HCPCS: 99199 ==

== ENCOUNTER 2021-06-11 08:07 | Outpatient (CLI) | payer MEDICARE, SELFPAY ==
--- NOTE | ~2021-06-11 | MM_ITS ---
EXAMINATION: MM screening tejas BI w [facility] HISTORY: Screening mammogram, family history of breast cancer in her mother. TECHNIQUE: Craniocaudal and mediolateral oblique 3-D tomosynthesis images were obtained and synthetic 2-D images were generated. CAD analysis was submitted and interpreted. COMPARISON: 05/02/2019, 05/11/2009 BREAST PARENCHYMAL COMPOSITION: There are scattered areas of fibroglandular density. FINDINGS: RIGHT BREAST: There is no evidence of suspicious mass, calcification, or architectural distortion to suggest malignancy. There has been no significant interval change. LEFT BREAST: An asymmetry is present at the posterior third of the upper-outer quadrant of the breast on the mediolateral oblique view.. IMPRESSION: 1. Left breast asymmetry on the mediolateral oblique view. 2. Additional mammographic views and possible breast ultrasound are recommended. BI-RADS Category 0: Incomplete: Needs additional imaging evaluation. Reviewed, dictated and finalized at location A. UNTANT COST IMPRESSION: 1. Left breast asymmetry on the mediolateral oblique view. 2. Additional mammographic views and possible breast ultrasound are recommended . BI-RADS Category 0: Incomplete: Needs additional imaging evaluation.
--- NOTE | ~2021-06-11 | DEXA_ITS ---
Bone Density Report Name: TAMEKA BAGLEY Age: 65 Sex: Female Ethnicity: White Date of : 1955 Indication: postmenopausal; screening for osteoporosis; height loss; prior fracture; hysterectomy; Referring Provider: ANASTACIO ROSAS Study: Bone densitometry was performed. Exam Date: June 11, 2021 Accession number: [id number] Bone Density: Region BMD T-score Z-score Classification AP Spine(L1-L4) 0.789 -2.3 -0.5 Osteopenia Femoral Neck (Left) 0.582 -2.4 -0.8 Osteopenia Total Hip (Left) 0.653 -2.4 -1.1 Osteopenia Femoral Neck (Right) 0.581 -2.4 -0.8 Osteopenia Total Hip (Right) 0.701 -2.0 -0.7 Osteopenia Femoral Neck Mean 0.581 -2.4 -0.8 Osteopenia Total Hip Mean 0.677 -2.2 -0.9 Osteopenia World Health Organization criteria for BMD impression classify patients as: Normal (T-score at or above -1.0), Osteopenia (T-score between -1.0 and -2.5), or Osteoporosis (T-score at or below -2.5). 10-year Fracture Risk: FRAX not reported because: Treated for osteoporosis Clinical Information Provided by Patient: Has had a low trauma fracture Is being treated for osteoporosis Has used the following medications: Vitamin D, Calcium Has the following medical conditions: Hysterectomy Patient maximum height was 60 Drinks caffeinated beverages Onset of menses at age 10 Number of children 3 Impression: The patient has low bone mass, based on the Left Total Hip T-score. The patient has risk factors, including: previous fracture. Discussion: It is important to ask patients whether they are taking their medications and to encourage continued and appropriate compliance with their osteoporosis therapies to reduce fracture risk. It is also important to review their risk factors and encourage appropriate calcium and vitamin D intakes, exercise, fall prevention and other lifestyle measures. Follow-Up: Consider a repeat BMD and Vertebral Fracture Assessment (VFA) exam in 2 years or sooner if medically necessary, to reassess this patient's status. Reported by: Dr. Robbie Oliva on 06/11/2021 9:12:00 AM. Reviewed, dictated and finalized at location ALizzy OCAMPO
--- NOTE | 2021-06-11 11:34 | PTOPEVAL ---
Thank you for referring Lela Rivers to [facility].? The patient is scheduled to be seen for therapy? __3__x/week for 12 visits. Please review, sign, date and return this plan of care CHRISTIANO. I agree with and certify that the following plan of care is medically necessary. Referring Physician Date Admitting Provider: Attending Provider: Cassius Greer M.D. Referring Provider: *PT Outpatient Evaluation Start: 06/11/21 10:51 Freq: Status: Active Protocol: Document 06/11/21 10:00 [facility] (Rec: 06/11/21 11:33 [facility] [email or web address]) Therapy Assessment Status Assessment Status Assessment Status Evaluation Outpatient Past Medical History Neurological History Hx Cerebrovascular Accident (CVA) Yes: Right brain CVA on August 06 Hx Transient Ischemic Attacks (TIA) Yes Gastrointestinal History Hx Appendectomy Yes Musculoskeletal History Hx Fibromyalgia Yes: currently taking medication orally Reproductive History Hx Section Yes Evaluation Information Problem Diagnosis left rotator cuff tear, left shoulder pain Onset 04/13/21 Subjective Information Pt. reports she injured the Query Text:As Reported By Patient/ left shoulder about 2 months Family ago. She reports that she has fallen several times which may have resulted in injuring the shoulder. She describes her shoulder pain in the lateral brachial region. She states that she cannot lift her arm overhead. She has pain at night which hinders her sleep. Pt. reports she is left hand dominant. She has assist from family and friends currently with IADL's Prior Level of Function Comments Additional Prior Level of Function Pt. has hx of CVA affecting Comments the l.e. and left arm. She reports that she does not drive and has assist getting into the community. She uses a rollator walker for ambulation. Pain Assessment Pain Scale Pain Scale Used Numeric (1 - 10) Self Report Pain Assessment Left Shoulder(s) Reported Pain Level 5 Pain Description Aching,Burning Pain Score Pain Score 5: Self Report Interventions Used Interventions Used By Clinicians
== END 2021-06-11 08:08 | disposition home or self-care (01) ==
LOC: CHSIMG 08:09
PROVIDERS: PCP Family Medicine; Visit Provider Family Medicine
DX: M81.0 Age-related osteoporosis without current pathological fracture (principal); Z12.31 Encounter for screening mammogram for malignant neoplasm of breast
CPT/HCPCS: 77063; 77067; 77080; 97014; 97110; 97161; G0283

== ENCOUNTER 2021-06-11 13:04 | Outpatient (RCR) | payer MEDICARE, SELFPAY | END 2021-06-28 23:59 | disposition home or self-care (01) | LOC: CHSPT 13:04 | PROVIDERS: Visit Provider Nurse Practitioner Family | DX: S46.012A Strain of muscle(s) and tendon(s) of the rotator cuff of left shoulder, initial encounter (principal) | CPT/HCPCS: 97014; 97110; G0283 ==

== ENCOUNTER 2021-06-21 08:47 | Outpatient (CLI) | payer MEDICARE, SELFPAY ==
--- NOTE | ~2021-06-21 | MMUS_ITS ---
EXAMINATION: MM diagnostic tejas LT w [facility], US breast LT limited HISTORY: Follow-up left breast asymmetry TECHNIQUE: Additional 3-D tomosynthesis images of the left breast were performed and synthetic 2-D im ages were generated. CAD analysis was submitted and interpreted. High resolution Limited left breast ultrasound was performed. COMPARISON: Comparison to multiple prior studies sequentially, with oldest reviewed study dated 05/02. BREAST PARENCHYMAL COMPOSITION: Breast composed of scattered areas of fibroglandular density. FINDINGS: MAMMOGRAPHIC FINDINGS: There are no suspicious masses, calcifications or architectural distortion in the left breast to sugg est malignancy. Focal asymmetry superiorly in the left breast on MLO view is less dense with spot com pression views, consistent with superimposed fibroglandular tissue. ULTRASOUND: Limited left breast ultrasound: Normal heterogeneous echotexture without focal solid or cystic mass. IMPRESSION: 1. No evidence for malignancy in the left breast. 2. Routine yearly screening mammogram and regular clinical breast examination are recommended. BI-RADS Category 1: Negative Reviewed, dictated and finalized at location A. E SALESMAN IMPRESSION: 1. No evidence for malignancy in the left breast. 2. Routine yearly screening mammogram and regular clinical breast examination a re recommended. BI-RADS Category 1: Negative
== END 2021-06-21 08:48 | disposition home or self-care (01) ==
LOC: CHSIMG 08:48
PROVIDERS: PCP Family Medicine; Visit Provider Family Medicine
DX: R92.8 Other abnormal and inconclusive findings on diagnostic imaging of breast (principal)
CPT/HCPCS: 76642; 77061; 77065; G0279

== ENCOUNTER 2023-01-19 12:27 | Outpatient (CLI) | payer MEDICARE, SELFPAY ==
--- NOTE | ~2023-01-19 | XR_ITS ---
EXAMINATION: XR shoulder LT min 2V DATE: 01/19/2023 13:02 INDICATION: Left shoulder pain. TECHNIQUE: 4 views of left shoulder were obtained. COMPARISON: None. FINDINGS: Bone alignment is normal. No fracture. There is mild osteoarthritis of glenohumeral joint a nd acromioclavicular joint. Calcified pulmonary nodules are consistent with old granulomatous disease . IMPRESSION: 1. Mild particular osteoarthritis. Reviewed, dictated and finalized at location A.
--- NOTE | ~2023-01-19 | CT_ITS ---
EXAMINATION: CT lung screening DATE: 01/19/2023 13:02 INDICATION: History of nicotine dependence TECHNIQUE: Computed tomography (CT) of the chest was performed without intravenous contrast. The dose -length product was 51.94 mGy-cm. Automated exposure control and iterative reconstruction technique w ere employed. COMPARISON: None FINDINGS: There is atherosclerosis of the aorta and coronary arteries. No significant pleural or vicki cardial effusion. There is left axillary lymphadenopathy, nonspecific. Upper abdomen is unremarkable. There is emphysema. There is calcified granuloma in the left upper lobe. No pneumothorax. No endobro nchial lesions. Mild thoracic spondylosis. No focal airspace consolidation. IMPRESSION: 1. Lung-RADS category 1: Negative. Continue annual screening with noncontrast low-dose chest CT in 12 months. Reviewed, dictated and finalized at location B. IMPRESSION: 1. Lung-RADS category 1: Negative. Continue annual screening with noncontrast l ow-dose chest CT in 12 months.
== END 2023-01-19 12:28 | disposition home or self-care (01) ==
LOC: CHSIMG 12:30
PROVIDERS: PCP Internal Medicine; Visit Provider Internal Medicine
DX: Z12.2 Encounter for screening for malignant neoplasm of respiratory organs (principal); Z87.891 Personal history of nicotine dependence; M25.512 Pain in left shoulder; M19.012 Primary osteoarthritis, left shoulder
CPT/HCPCS: 71271; 73030

== ENCOUNTER 2023-06-22 09:49 | Outpatient (RCR) | payer MEDICARE, SELFPAY ==
--- NOTE | 2023-06-23 10:05 | PTOPEVAL1 ---
Assessment and note entered by Idalmis Fitzgerald DPT Evaluation Information Assessment Status Evaluation Diagnosis weakness Onset 06/12/23 Subjective Information Patient reports she had a CVA in July of 2020. She reports she did PT immediately following stroke. Patient lives at home alone with no steps or stairs. She has a studio apartment. She reports she is seeking a scooter for community/house hold use and one that folds up that she can put into the back of a car. She reports she has difficulty with walking prolonged distance due to fatigue and decreased speed. she reports she currently has a power chair that she got second hand and it is too big for her and unable to get into a vehicle. She reports she has pain in the L shoulder due to falls resulting in a RTC tear. She also reports she has to get botox injections for spasticity of the L LE and wears an AFO. Reported Pain Level Pain Score 2: Self Report Assessment PT Clinical Summary Ms. Rivers is a 67 year old female with history of CVA causing L sided weakness and spasticity. Objectively she demonstrates decreased L UE weakness, L LE weakness, decreased balance and decreased endurance. She is unable to participate in community activity, grocery shop independently and has frequent falls within her home at this time. 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 She would benefit from obtaining a motorized scooter to improve quality of life, decrease risk of falls and return to community and home independence. Plan of Care PT Services Indicated No Treatment Frequency and DC following scooter evaluation Duration These treatments will address the objective and functional deficits as defined above. The patient will be advanced safely and appropriately in order for the patient to progress towards his/her prior level of function. Additional exercises will be introduced and as well as a comprehensive home exercise program upon discharge, if needed, ?to ensure carryover of functional gains achieved in the clinic. This treatment plan has been reviewed and agreement upon by the patient.
== END 2023-06-22 20:00 | disposition home or self-care (01) ==
LOC: CHSPT 09:49
PROVIDERS: Visit Provider Internal Medicine
DX: Z46.89 Encounter for fitting and adjustment of other specified devices (principal)
CPT/HCPCS: 97161

== ENCOUNTER 2023-08-26 13:55 | Outpatient (RCR) | payer MEDICARE, SELFPAY | END 2023-08-26 20:00 | disposition home or self-care (01) | LOC: CHSPT 13:55 | PROVIDERS: Visit Provider Internal Medicine | DX: Z46.89 Encounter for fitting and adjustment of other specified devices (principal); I69.354 Hemiplegia and hemiparesis following cerebral infarction affecting left non-dominant side | CPT/HCPCS: 99199 ==

== ENCOUNTER 2023-09-16 09:13 | Outpatient (CLI) | payer MEDICARE, SELFPAY ==
--- NOTE | ~2023-09-16 | US_ITS ---
EXAMINATION: US retroperitoneal comp DATE: 09/16/2023 09:43 INDICATION: Mixed incontinence. TECHNIQUE: Multiple ultrasound grayscale images of the kidneys were obtained. COMPARISON: Chest CT 01/19/2023 FINDINGS: The right kidney measures 8.5 x 2.7 x 3.1 cm. The left kidney measures 9.6 x 3.4 x 3.7 cm. The kidney s demonstrate normal parenchymal echogenicity. There is a 16 mm cyst in right kidney. There is no hyd ronephrosis. The bladder is normal. Prevoid bladder volume is 47 mL. Post void bladder volume is 13 m L. IMPRESSION: 1. Mild atrophy of right kidney. No hydronephrosis. Reviewed, dictated and finalized at location A.
== END 2023-09-16 09:14 | disposition home or self-care (01) ==
DX: N39.46 Mixed incontinence (principal); N26.1 Atrophy of kidney (terminal)
CPT/HCPCS: 76770

== ENCOUNTER 2023-12-11 12:30 | Emergency (ER) | payer MEDICARE, SELFPAY ==
--- NOTE | ~2023-12-11 | CT_ITS ---
EXAMINATION: CT cervical spine wo con DATE: 12/11/2023 13:30 INDICATION: Fall with neck pain and posterior head injury TECHNIQUE: Computed tomography (CT) of the cervical spine was performed without intravenous contrast. Automated exposure control and iterative reconstruction technique were employed. The dose-length pro duct was 113.46 mGy-cm. COMPARISON: None FINDINGS: Bone alignment is normal. There is likely developmental anterior and posterior fusion at C2-C3. Verte bral body heights are normal. No fracture. Disc heights are normal. There are disc bulges which contr ibute is mild central canal stenosis at C2-C3 through C4-C5. There is multilevel mild cervical facet and uncovertebral osteoarthritis without significant neural foraminal stenosis. Moderate facet osteoa rthritis at a few of the levels in the upper thoracic spine. There is a small coarse calcification ri ght thyroid lobe and the few small likely benign bilateral thyroid nodules the largest on the right m easuring up to 1.2 cm. Cervical soft tissues are otherwise unremarkable. Visualized apices of lungs a re clear. IMPRESSION: 1. Likely developmental anterior and posterior fusion at C2-C3 with minimal cervical spondylosis. No acute osseous abnormality. Reviewed, dictated and finalized at location A. IMPRESSION: 1. Likely developmental anterior and posterior fusion at C2-C3 with minimal cer vical spondylosis. No acute osseous abnormality.
--- NOTE | ~2023-12-11 | XR_ITS ---
XR shoulder RT min 2V 12/11/2023 13:31 INDICATION: Right shoulder pain PROCEDURE: 4 views right shoulder COMPARISON: 05/14/2020 FINDINGS: Fracture, dislocation or subluxation is not identified. The soft tissues appear within norm al limits. No foreign bodies are identified. IMPRESSION: 1: NO ACUTE BONE OR JOINT ABNORMALITY IDENTIFIED. Reviewed, dictated and finalized at location B.
--- NOTE | ~2023-12-11 | XR_ITS ---
EXAMINATION: XR hip LT 2V w AP pelvis DATE: 12/11/2023 14:58 INDICATION: Left hip pain. Fall. TECHNIQUE: An anteroposterior view of the pelvis and 2 views of left hip were obtained. COMPARISON: None. FINDINGS: Alignment is normal. No fracture. There is mild left hip osteoarthritis. There is mild lumb ar spondylosis. IMPRESSION: 1. Mild left hip osteoarthritis. Reviewed, dictated and finalized at location A.
--- NOTE | ~2023-12-11 | XR_ITS ---
XR knee LT 3V 12/11/2023 13:31 Indication: Knee pain after fall Procedure: 3 views left knee Comparison: No prior studies for comparison. Findings: No fracture, subluxation or dislocation. No significant joint effusion. No foreign bodies. There is mild osteoarthritis. Impression: 1: No acute fracture. Reviewed, dictated and finalized at location B. Impression: 1: No acute fracture.
--- NOTE | ~2023-12-11 | CT_ITS ---
CT head without contrast Indication: Status post fall COMPARISON: 08/06/2020 Technique: Serial scans were obtained through the brain without the administration of contrast. Dose reduction technique was used on this scan by utilizing automated exposure control and iterative recon struction technique. The dose-length product (DLP) was 605.33 mGy-cm. Findings: There is no evidence of intracranial hemorrhage, mass lesion, or acute infarct. There are c hronic lacunar infarcts in the bilateral basal ganglia. The ventricles and subarachnoid spaces are di lated, consistent with mild atrophy. Low attenuation regions are seen within the periventricular whi te matter bilaterally, likely representing changes from chronic microvascular ischemic disease. There is no evidence of edema, mass effect or midline shift. The visualized paranasal sinuses and mastoi d air cells are clear. Impression: No intracranial hemorrhage, mass, or acute infarct. Chronic lacunar infarcts in the bilateral basal ganglia. Atrophy and chronic white matter changes, as above. Reviewed, dictated and finalized at location . Impression: No intracranial hemorrhage, mass, or acute infarct. Chronic lacunar infarcts in the bilateral basal ganglia. Atrophy and chronic white matter changes, as above.
--- NOTE | ~2023-12-11 | XR_ITS ---
EXAMINATION: SACRUM/COCCYX DATE: 12/11/2023 13:30 INDICATION: Low back pain after recent fall TECHNIQUE: Three views sacrum/coccyx FINDINGS: No prior studies for comparison. There is subtle discontinuity of the inferior aspect of the sacrum and coccyx, suspicious for fractur es. Moderate lower lumbar spondylosis. Sacral foramen are symmetric. IMPRESSION: 1. Possible nondisplaced fractures of the sacrum and coccyx. Consider correlation with CT. Reviewed, dictated and finalized at location B. IMPRESSION: 1. Possible nondisplaced fractures of the sacrum and coccyx. Consider correlati on with CT.
--- NOTE | ~2023-12-11 | XR_ITS ---
Left wrist Technique: PA, oblique, lateral, and ulnar deviation views were obtained. Clinical History: Status post fall Findings: No definite acute fracture or dislocation is seen. Osseous alignment is anatomic. Joint spa tanna are preserved. Soft tissues are unremarkable. Impression: No definite fracture or dislocation seen. Evaluation somewhat suboptimal due to persistent flexion at the wrist. Reviewed, dictated and finalized at [facility]. Impression: No definite fracture or dislocation seen. Evaluation somewhat suboptimal due to persistent flexion at the wrist.
[2023-12-11 12:31] VITALS: BP 133/80; PULSE 76; RESP 18; TEMP 36.4; O2SAT 95
--- NOTE | 2023-12-11 12:31 | ED.FALL ---
HPI - Fall General Chief Complaint: Fall Stated Complaint: tail bone pain Time Seen by Provider: 12/11/23 12:31 Source: patient Mode of arrival: EMS Limitations: no limitations History of Present Illness HPI Narrative: Patient is a 68-year-old female with multiple falls of 2 times in the last day. She has had mechanical falls and ground level. She complains of left wrist, left knee and right shoulder / scapula pains. MD complaint: fall Onset (ago): day(s) (2) Fall from: standing Fall witnessed: no Place fall occurred: home Loss of consciousness: none Prolonged down time: no Symptoms prior to fall: none Context: tripped/slipped Location of injury - extremities: Left: forearm and knee and Right: shoulder Severity: moderate Severity scale (1-10): 4 Quality: sharp Associated symptoms (after fall): denies Related Data Home Medications Medication Instructions Recorded Confirmed clopidogrel 75 mg tablet 75 mg PO DAILY 06/16/19 12/11/23 lisinopril 10 mg tablet 10 mg PO DAILY 08/06/20 12/11/23 tramadol 50 mg tablet 50 mg PO BID PRN Pain 08/06/20 12/11/23 fluoxetine 20 mg capsule 20 mg PO DAILY 12/11/23 12/11/23 lovastatin 10 mg tablet 10 mg PO DAILY 12/11/23 12/11/23 mirtazapine 7.5 mg tablet 7.5 mg PO DAILY 12/11/23 12/11/23 risedronate 150 mg tablet 150 mg PO DAILY 12/11/23 12/11/23 vibegron 75 mg tablet (Gemtesa) 75 mg PO DAILY 12/11/23 12/11/23 Allergies Allergy/AdvReac Type Severity Reaction Status Date / Time bupropion [From Wellbutrin] Allergy Unknown Verified 12/11/23 12:42 hydromorphone [From Dilaudid] Allergy Unknown Verified 12/11/23 12:42 Sulfa (Sulfonamide Allergy Unknown Verified 12/11/23 12:42 Antibiotics) Review of Systems Review of Systems: All systems reviewed & are unremarkable except as noted in HPI and below Constitutional: Constitutional: Reports no additional constitutional complaints Eyes: Eyes: Reports no additional eye complaints ENT: Reports system reviewed and no additional complaints, except as documented Cardiovascular: Cardiovascular: Reports no additional cardiovascular complaints Respiratory: Respiratory: Reports no additional respiratory complaints Gastrointestinal: Gastrointestinal: Reports no additional gastrointestinal complaints Genitourinary: Genitourinary: Reports no additional female genitourinary complaints Musculoskeletal: Musculoskeletal: Reports no additional musculoskeletal complaints Integumentary/Breasts: Skin/Breast: Reports system reviewed and no additional complaints, except as docu Neurologic: Reports system reviewed and no additional complaints, except as documented Psychiatric: Psychiatric: Reports no additional psychiatric complaints Endocrine: Endocrine: Reports no additional endocrine complaints Hematologic/Lymphatic: Hematologic/Lymphatic: Reports no additional hematologic/lymphatic complaints PMFSH Past Medical History Medical History ACL injury tear Anxiety Claustrophobia Congestion of nasal sinus CVA (cerebral vascular accident) Depression Dizziness Endometriosis Fibromyalgia Fibromyalgia Hair loss Hyperlipidemia Hypertension Hypertension Osteoporosis Ovarian cyst Septal defect, heart Sleep disorder Tendinitis of right rotator cuff TIA (transient ischemic attack) Urinary frequency Wears glasses Surgical History Surgical History H/O arthroscopic knee surgery H/O section H/O exploratory laparotomy H/O exploratory laparotomy H/O hysterectomy for benign disease 2014 H/O knee surgery H/O: hysterectomy History of appendectomy History of appendectomy History of carpal tunnel release of both wrists 1994 History of cholecystectomy 2006 History of eye surgery 2020 History of removal of cyst Left wrist, 2011 History of tonsillectomy 1979 Family History Family History (Reviewed 12/11/23 @ 13:43
[2023-12-11] MEDS: TETANUS,DIPHTHERIA,AC PERTUSSIS ADULT 0.5 ML (ADACEL) IM (13:44)
--- NOTE | 2023-12-11 13:45 | PC.NURSE ---
Pt resting in stretcher. No complaints at this time.
--- NOTE | 2023-12-11 14:15 | PC.NURSE ---
Gave pt warm blanket. Pt resting. Call light within reach. No complaints at this time.
[2023-12-11] MEDS: KETOROLAC 30 MG/ML VIAL (*BKC) IV PUSH (14:29)
[2023-12-11] MEDS: ORPHENADRINE CITRATE 30 MG/ML 2 ML VIAL 60 MG IM (14:29)
[2023-12-11 14:35] VITALS: BP 134/75; PULSE 73; RESP 16; O2SAT 97
[2023-12-11 15:20] VITALS: BP 120/85; PULSE 72; RESP 16; TEMP 36.4; O2SAT 96
== END 2023-12-11 15:20 | disposition home or self-care (01) ==
PROVIDERS: Emergency Provider Emergency Medicine; PCP Internal Medicine
DX: S32.2XXA Fracture of coccyx, initial encounter for closed fracture (principal); S32.10XA Unspecified fracture of sacrum, initial encounter for closed fracture; E78.5 Hyperlipidemia, unspecified; I10 Essential (primary) hypertension; F17.210 Nicotine dependence, cigarettes, uncomplicated; Z86.73 Personal history of transient ischemic attack (TIA), and cerebral infarction without residual deficits; Z79.899 Other long term (current) drug therapy; Z23 Encounter for immunization; W01.0XXA Fall on same level from slipping, tripping and stumbling without subsequent striking against object, initial encounter; Y92.009 Unspecified place in unspecified non-institutional (private) residence as the place of occurrence of the external cause
CPT/HCPCS: 70450; 72125; 72220; 73030; 73110; 73502; 73562; 90471; 90715; 96372; 96374; 99284; J1885; J2360

== ENCOUNTER 2023-12-29 12:55 | Outpatient (CLI) | payer MEDICARE, SELFPAY ==
--- NOTE | ~2023-12-29 | CT_ITS ---
CT pelvis wo con Ordering provider: Elvis Mcintosh MD History: . Fall F/U X 2 weeks, sacrum/coccyx fracture . Comparison: None. Technique: CT pelvis without oral and IV contrast. . Automated exposure control and iterative recons truction technique were employed. The dose-length product was 120.28 mGy-cm. Findings: BONES: Possible fracture in the right sacral alar. Follow-up advised. No hip dislocation. Age appropr iate degenerative changes of the visualized lower lumbar spine. The sacroiliac joint spaces shows vac uum phenomena suggestive of osteoarthritic changes. Hip Joints are unremarkable. SUPERFICIAL SOFT TISSUES: Normal. PELVIC ORGANS: The bladder is normal. VISUALIZED BOWEL AND MESENTERY: Normal. No free air or free fluid. No lymphadenopathy. RETROPERITONEUM: Mild atheromatous disease. IMPRESSION: Possible fracture in the right sacral alar. Follow-up advised. Reviewed, dictated and finalized at location A.
== END 2023-12-29 12:56 | disposition home or self-care (01) ==
LOC: CHSIMG 12:57
PROVIDERS: PCP Internal Medicine; Visit Provider Internal Medicine
DX: S32.10XA Unspecified fracture of sacrum, initial encounter for closed fracture (principal)
CPT/HCPCS: 72192

== ENCOUNTER 2024-01-11 09:06 | Outpatient (CLI) | payer MEDICARE, SELFPAY ==
--- NOTE | ~2024-01-11 | XR_ITS ---
3 VIEWS LUMBAR SPINE Ordering provider: Elvis Mcintosh MD History: . Fall X 2 weeks, Fx sacrum, Hx stroke - affecting LT side . Comparison: May 02, 2019 FINDINGS: VERTEBRAL BODIES: No visible fracture or subluxation. DISK SPACES: Narrowing of the disc L5-S1. Narrowing of the disc T12-L1. SOFT TISSUES: Vascular calcifications. IMPRESSION: No acute osseous abnormality lumbar spine. Multilevel degenerative disc disease. Reviewed, dictated and finalized at location A.
== END 2024-01-11 09:07 | disposition home or self-care (01) ==
LOC: CHSIMG 09:08
PROVIDERS: PCP Internal Medicine; Visit Provider Internal Medicine
DX: M54.50 Low back pain, unspecified (principal); M51.36 Other intervertebral disc degeneration, lumbar region
CPT/HCPCS: 72100